=== PATIENT | female | born 2000 | race Caucasian/White ===

== ENCOUNTER 2018-01-08 19:28 | Emergency (ER) | payer BC ==
[2018-01-08] MEDS ORDERED: Acetaminophen/Codeine 30-300mg Tablet ONE (20:10)
[2018-01-08] MEDS ORDERED: Erythromycin Base 0.5% Ophth Oint 3.5 gm Tube ONE (20:11)
== END 2018-01-08 20:40 | disposition home or self-care (01) ==
LOC: MADERS 19:28
DX: S05.8X2A Other injuries of left eye and orbit, initial encounter (principal); F41.9 Anxiety disorder, unspecified; F32.9 Major depressive disorder, single episode, unspecified; X58.XXXA Exposure to other specified factors, initial encounter
CPT/HCPCS: 99283